=== PATIENT | female | born 1950 | race Caucasian/White ===

== ENCOUNTER → 2020-01-28 | Outpatient (CLI) | payer OTHER ==
--- NOTE | 2020-02-02 08:26 | PE ---
Nuclear medicine PET/CT HISTORY: Breast carcinoma, initial Patient received 11.6 mCi F-18 FDG intravenously delayed scanning was performed from skull base to th e mid thighs. Localization and attenuation correction CT scan was performed. CT cervical spine 04/12/2014 There may be some limitations due to patient body habitus. Chest and neck: There is no cervical or supraclavicular adenopathy. No mediastinal, axillary, or oksana r adenopathy. Patient's left breast carcinoma shows associated hypermetabolic uptake SUV 3.5 measurin g approximately 3.1 cm, there is a additional soft tissue mass present immediately anterior and super ior to the hypermetabolic focus measuring 2.9 cm with SUV 1.9. No subpectoral or internal mammary danny nopathy or hypermetabolic uptake. Posterior lung bases show some possible atelectatic changes, diffic ult to exclude pneumonia. Indeterminate nodule is present in the left lower lobe on axial image #95 m easuring only approximately 5 mm. No associated uptake within the lungs. There is no pleural or peric ardial effusion. ABDOMEN: There is no evident liver mass. Patient is post cholecystectomy. No adrenal mass or retroper itoneal adenopathy. No suspicious uptake. There is no pelvic adenopathy. Osseous structures show artifact due to patient's left hip prosthesis. Degenerative disc changes, pos top change and facet arthropathy noted in the lower lumbar spine. No suspicious hypermetabolic uptake . Postop changes are noted to the cervical spine with associated streak artifact. Anterior arch of C1 shows fracture to the left of midline is minimally displaced, there is likely fracture the posterior aspect of C1 at the level of the lamina on the right. IMPRESSION: Findings consistent with patient's history of breast carcinoma. C1 fractures, correlate w ith appropriate history, this is an interval finding compared to prior CT cervical spine 04/12/2014. In determinate pulmonary nodule, follow-up. A Yellow level critical message alert has been initiated for David Martin MD~[id number] via the [employer] Critical Results System on 02/02/2020 8:23 AM. This message alert has been sent to David aMrtin MD~[id number] via the preferences provided by the clinician for the receipt of Radiology Critical Findin gs. Message ID [id number].
== END | disposition home or self-care (01) ==
LOC: RADPETMAIN 15:47
PROVIDERS: ATTEND Internal Medicine Hematology & Oncology
DX: C50.512 Malignant neoplasm of lower-outer quadrant of left female breast (principal)
CPT/HCPCS: 78815; A9552